=== PATIENT | male | born 1965 | race Caucasian/White ===

== ENCOUNTER 2019-12-03 18:23 | Emergency (ER) | payer BC, SELFPAY ==
[2019-12-03 18:24] VITALS: BP 158/98; PULSE 117; RESP 16; TEMP 36.7; O2SAT 97; BMI 23.1
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
--- NOTE | 2019-12-03 19:12 | PC.NURSE ---
pt refused to wait for his leg to be wrapped with a socorro bandage or for it to be cleaned. pt did not want his discharge paperwork and refused to sign
== END 2019-12-03 19:15 | disposition home or self-care (01) ==
LOC: ER 19:04
PROVIDERS: Emergency Provider Emergency Medicine
DX: S71.131A Puncture wound without foreign body, right thigh, initial encounter (principal); W32.0XXA Accidental handgun discharge, initial encounter; F17.210 Nicotine dependence, cigarettes, uncomplicated; Z53.21 Procedure and treatment not carried out due to patient leaving prior to being seen by health care provider
CPT/HCPCS: 12345; 73552; 90715; 99281

== ENCOUNTER 2021-10-21 14:38 | Emergency (ER) | payer BC, SELFPAY ==
[2021-10-21 15:03] VITALS: BP 135/79; PULSE 77; RESP 18; TEMP 36.9; O2SAT 99; BMI 23.1
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
[2021-10-21] MEDS: tetanus-diphtheria tox (adult) 0.5 mL SDV IM (15:32)
== END 2021-10-21 15:49 | disposition home or self-care (01) ==
PROVIDERS: Emergency Provider Physician Assistant
DX: S61.240A Puncture wound with foreign body of right index finger without damage to nail, initial encounter (principal); W26.8XXA Contact with other sharp object(s), not elsewhere classified, initial encounter; F17.210 Nicotine dependence, cigarettes, uncomplicated; Z23 Encounter for immunization
CPT/HCPCS: 90471; 90714; 99282